=== PATIENT | male | born 1975 | race African-American/Black ===

== ENCOUNTER 2018-10-26 21:44 | Emergency (ER) | payer MEDICAID ==
[~2018-10-26] VITALS: Ht 188 cm; Wt 146.0 kg
[2018-10-27] MEDS ORDERED: DICYCLOMINE HCL 10MG CAPSULE PO ONE (03:45)
[2018-10-27 04:22] LABS: BASOPHILS % 0.2 % (0.0-2.0); EOSINOPHILS % 5.2 % (0.0-5.0); HEMATOCRIT. 44.5 % (42.0-52.0); HEMOGLOBIN. 14.3 g/dL (14.0-18.0); LYMPHOCYTES % 48.6 % (20.0-50.0); MEAN CORPUSCULAR HEMOGLOBIN 26.5 pg (28.0-32.0); MEAN CORPUSCULAR VOLUME 82.5 fL (80.0-94.0); MEAN PLATELET VOLUME 9.1 fl (7.4-10.4); MONOCYTES % 10.3 % (2.0-8.0); NEUTROPHILS % 35.7 % (40.0-76.0); PLATELET 241 x1000/uL (130-400); RED CELL DISTRIBUTION WIDTH 15.1 % (11.6-14.6)
[2018-10-27 04:28] LABS: INR 1.1; PROTHROMBIN TIME 10.8 sec (9.1-11.1)
[2018-10-27 04:29] LABS: CHLORIDE 100 mEq/L (98-107)
[2018-10-27 06:20] LABS: CLARITY URINE CLEAR (CLEAR); COLOR URINE YELLOW (YELLOW); KETONES URINE NEGATIVE (NEGATIVE); LEUKOCYTE ESTERASE URINE NEGATIVE (NEGATIVE); NITRITE URINE NEGATIVE (NEGATIVE); OCCULT BLOOD URINE 2+ (NEGATIVE); PROTEIN URINE 1+ (NEGATIVE); SPECIFIC GRAVITY URINE 1.018 (1.005-1.030)
[2018-10-27 07:41] VITALS: BP 116/74
== END 2018-10-27 07:42 | disposition home or self-care (01) ==
LOC: ER 23:46
DX: R10.13 Epigastric pain (principal); M54.9 Dorsalgia, unspecified; E11.9 Type 2 diabetes mellitus without complications; I10 Essential (primary) hypertension; M72.2 Plantar fascial fibromatosis; Z87.891 Personal history of nicotine dependence; Z91.040 Latex allergy status
CPT/HCPCS: 36415; 93005; 99284

== ENCOUNTER 2019-02-11 09:12 | Emergency (ER) | payer MEDICAID ==
[~2019-02-11] VITALS: Ht 188 cm; Wt 137.0 kg
[2019-02-11 11:07] LABS: CLARITY URINE CLEAR (CLEAR); COLOR URINE YELLOW (YELLOW); KETONES URINE TRACE (NEGATIVE); LEUKOCYTE ESTERASE URINE NEGATIVE (NEGATIVE); NITRITE URINE NEGATIVE (NEGATIVE); OCCULT BLOOD URINE 2+ (NEGATIVE); PROTEIN URINE TRACE (NEGATIVE); SPECIFIC GRAVITY URINE 1.021 (1.005-1.030)
[2019-02-11 11:23] LABS: CHLORIDE 107 mEq/L (98-107)
[2019-02-11 13:50] VITALS: BP 137/83
== END 2019-02-11 14:23 | disposition home or self-care (01) ==
LOC: ER 09:12
DX: R31.29 Other microscopic hematuria (principal); R80.9 Proteinuria, unspecified; E11.9 Type 2 diabetes mellitus without complications; I10 Essential (primary) hypertension; E78.00 Pure hypercholesterolemia, unspecified; Z91.040 Latex allergy status
CPT/HCPCS: 36415; 74176; 99284

== ENCOUNTER 2021-10-24 15:18 | Emergency (ER) | payer MEDICAID ==
[~2021-10-24] VITALS: Ht 188 cm; Wt 117.0 kg
[2021-10-24] MEDS ORDERED: LORAZEPAM 0.5MG TABLET PO ONE (16:00)
[2021-10-24 16:41] VITALS: BP 155/75
== END 2021-10-24 16:42 | disposition home or self-care (01) ==
LOC: ER 15:18
DX: F41.0 Panic disorder [episodic paroxysmal anxiety] (principal); Z63.79 Other stressful life events affecting family and household; F20.9 Schizophrenia, unspecified; I10 Essential (primary) hypertension; E11.9 Type 2 diabetes mellitus without complications; Z79.899 Other long term (current) drug therapy
CPT/HCPCS: 99283

== ENCOUNTER 2022-07-01 08:07 | Emergency (ER) | payer MEDICAID ==
[~2022-07-01] VITALS: Ht 188 cm; Wt 120.0 kg
[2022-07-01 08:14] VITALS: BP 150/102
[2022-07-01 09:30] LABS: BASOPHILS % 0.7 % (0.0-2.0); EOSINOPHILS % 2.5 % (0.0-5.0); HEMATOCRIT. 44.7 % (42.0-52.0); HEMOGLOBIN. 14.7 g/dL (14.0-18.0); LYMPHOCYTES % 37.3 % (20.0-50.0); MEAN CORPUSCULAR HEMOGLOBIN 27.6 pg (28.0-32.0); MEAN CORPUSCULAR VOLUME 83.6 fL (80.0-94.0); MEAN PLATELET VOLUME 9.3 fl (7.4-10.4); MONOCYTES % 9.5 % (2.0-8.0); PLATELET 208 x1000/uL (130-400); RED BLOOD CELL COUNT 5.35 mill/uL (4.7-6.1); RED CELL DISTRIBUTION WIDTH 13.8 % (11.6-14.6)
[2022-07-01 09:36] LABS: CHLORIDE 107 mEq/L (98-107)
== END 2022-07-01 10:43 | disposition left against medical advice (07) ==
LOC: ER 08:07 → CANBEDREQ 07-02 07:31
DX: R07.2 Precordial pain (principal); M25.561 Pain in right knee; R42 Dizziness and giddiness; I10 Essential (primary) hypertension; E11.9 Type 2 diabetes mellitus without complications
CPT/HCPCS: 36415; 71045; 73562; 80053; 83880; 84484; 85025; 93005; 99285